=== PATIENT | female | born 2000 | race Hispanic/Latino ===

== ENCOUNTER 2024-11-04 05:30 | Inpatient (IN) | payer MEDICAID, OTHER ==
[2024-11-06] MEDS ORDERED: HYDROcodone/Acetaminophen 5/325 mg Tablet PO PRN (09:32)
[2024-11-06] MEDS ORDERED: Diphenoxylate HCl/Atropine Tablet PO PRN (09:32)
[2024-11-06] MEDS ORDERED: Misoprostol 200 MCG TAB PR PRN (09:32)
[2024-11-06] MEDS ORDERED: hydrALAZINE 20 MG/ML VIAL SLOW IVP PRN ×2 (09:32→20:13)
[2024-11-06] MEDS ORDERED: Carboprost 250 MCG/ML AMP IM PRN (09:32)
[2024-11-06] MEDS ORDERED: fentaNYL 50 mcg/mL 1 mL Vial SLOW IVP PRN (09:32)
[2024-11-06] MEDS ORDERED: Ondansetron PF 4 MG/2 ML Vial IVP PRN ×2 (09:32→20:13)
[2024-11-06] MEDS ORDERED: Acetaminophen 500 MG TAB PO PRN (09:32)
[2024-11-06] MEDS ORDERED: Promethazine HCl 25 MG/ML VIAL IM PRN ×2 (09:32→20:13)
[2024-11-06] MEDS ORDERED: Oxytocin 30 units/NS 500 ML 500 ML IV SCH ×2 (09:45→20:15)
[2024-11-06 10:08] VITALS: BMI 32.5
[2024-11-06 10:14] LABS: Hematocrit 39.2 % (34.9-44.5); Hemoglobin 13.3 g/dL (12.0-15.5); Mean Corpuscular HGB CONC 33.9 g/dL (32.0-36.0); Mean Corpuscular Hemoglobin 29.6 pg (27.0-33.0); Mean Corpuscular Volume 87.3 fL (81.6-98.3); Platelet Count 231 10x3/uL (150-450); RBC Distribution Width 13.5 % (11.5-14.5); Red Blood Cell (RBC) Count 4.49 10x6/uL (3.90-5.03); White Blood Cell (WBC) Count 9.7 10x3/uL (3.5-10.5)
[2024-11-06 10:45] LABS: HBsAg Index 0.17 S/CO (0-0.99); Hep B Surf Ag - L&D Non-Reactive S/CO (NonReactive)
[2024-11-06 10:46] LABS: Syphilis Antibody Nonreactive (Nonreactive); Syphilis Antibody Index 0.02 S/CO (<1.00 Non-Reactive)
[2024-11-06] MEDS: Lactated Ringer's 1,000 ML IV SCH (11:15)
[2024-11-06] MEDS: Oxytocin 30 units/NS 500 ML 500 ML IV SCH ×2 (11:15→16:40)
[2024-11-06] MEDS: fentaNYL/Ropivacaine Epidural 0 ML ONE (15:50)
[2024-11-06] MEDS: Lidocaine 1% (PF) 30 ML VIAL SC PRN (15:50)
[2024-11-06] MEDS: Ibuprofen 800 MG TAB PO PRN (17:39)
[2024-11-06] MEDS: Methylergonovine 0.2 MG/ML VIAL IM PRN (17:52)
[2024-11-06] MEDS: Tranexamic Acid 1,000 MG/10 ML VIAL IVP PRN (17:52)
[2024-11-06] MEDS ORDERED: Bisacodyl 10 MG SUPP PR PRN (20:13)
[2024-11-06] MEDS ORDERED: Boostrix 0.5 ML (Tdap) VIAL (>/=7 yrs of age) IM ONE (20:13)
[2024-11-06] MEDS ORDERED: diphenhydrAMINE 25 MG CAP PO PRN (20:13)
[2024-11-06] MEDS ORDERED: Lanolin Ointment 7 GM TUBE TOP PRN (20:13)
[2024-11-06] MEDS ORDERED: Milk Of Magnesia 30 ML UDCUP PO PRN (20:13)
[2024-11-06] MEDS: Docusate 100 MG CAP PO SCH (21:31)
[2024-11-07] MEDS: Ibuprofen 800 MG TAB PO SCH (01:18)
[2024-11-07] MEDS: Ferrous Sulfate 325 MG TAB PO SCH (08:35)
[2024-11-07] MEDS: Prenatal Vitamin 1 TAB PO SCH (08:35)
[2024-11-07] MEDS: HYDROcodone/Acetaminophen 5/325 mg Tablet PO PRN (08:36)
[2024-11-07 11:38] VITALS: BP 118/68; TEMP 97.9
== END 2024-11-07 18:30 | disposition home or self-care (01) | DRG 807 ==
LOC: CSHLD 11-06 09:27 → CSHPP 11-06 19:33
PROVIDERS: ADMIT Family Medicine; ATTEND Family Medicine
PROC: 10E0XZZ Delivery of Products of Conception, External Approach (ICD-10-PCS; principal; 2024-11-06)
PROC: 0KQM0ZZ Repair Perineum Muscle, Open Approach (ICD-10-PCS; 2024-11-06)
DX: O70.1 Second degree perineal laceration during delivery (principal); Z37.0 Single live birth; Z3A.38 38 weeks gestation of pregnancy
CPT/HCPCS: 36415; 85027; 86780; 86850; 86900; 86901; 87340; J2210; J2590; J7120